=== PATIENT | male | born 1975 | race Caucasian/White ===

== ENCOUNTER 2020-05-06 10:20 | Outpatient (CLI) | payer BC ==
--- NOTE | 2020-05-06 11:17 | XRAY Report ---
PROCEDURE: Shoulder 2 View LT INDICATIONS: HEALTHCARE MAINTENANCE TECHNIQUE: 2 views of the shoulder were acquired. COMPARISON: None. FINDINGS: Bones: Mild osteophytic change of the acromioclavicular joint. Somewhat downsloping configuration of the acromion. Mild calcification at the insertion of the rotator cuff footplate. No fractures or dis locations. No suspicious bony lesions. Visualized ribs appear intact. Soft tissues: No suspicious soft tissue calcifications. IMPRESSION: Mild osteoarthritic changes of the acromioclavicular joint. Findings suspicious for calc ific tendinosis of the rotator cuff tendon. Mild downsloping of the acromion which may predispose to rotator cuff tear. MRI could be considered for further evaluation. Reviewed by: Nomi Roman MD on 05/06/2020 11:16 AM PDT Approved by: Nomi Roman MD on 05/06/2020 11:16 AM PDT Station ID: [id number]
== END 2020-05-06 10:21 | disposition home or self-care (01) ==
LOC: DI 10:20
PROVIDERS: ATTEND Family Medicine
DX: Z00.00 Encounter for general adult medical examination without abnormal findings (principal); M19.012 Primary osteoarthritis, left shoulder

== ENCOUNTER 2020-05-27 16:18 | Outpatient (CLI) | payer BC ==
--- NOTE | 2020-05-28 09:17 | MRI Report ---
PROCEDURE: Shoulder LT W/O INDICATIONS: LT SHOULDER PAIN TECHNIQUE: Noncontrast oblique coronal T2 fast spin echo with fat saturation, oblique sagittal T1 spin echo and T2 fast spin echo with fat saturation, axial T1 spin echo and T2 fast spin echo with fat saturation t hrough the shoulder. COMPARISON: Plain films of the left shoulder dated 05.06.20. FINDINGS: Image quality: Excellent. Rotator cuff: There is a high-grade articular surface tear of the mid supraspinatus tendon at the hum eral insertion site, measuring roughly 6 mm anteroposterior, demonstrating extension to the musculote ndinous junction. Low-grade partial-thickness and bursal surface tearing of the mid and posterior sup raspinatus tendon at the musculotendinous junction. Subscapularis, infraspinatus, and teres minor ten dons are intact. No rotator cuff atrophy. Bones and bursae: No bone marrow contusions or fractures. Moderate acromioclavicular joint degenerat ion. The acromion demonstrates conventional anatomy, without an os acromiale. Small amount of subacr omial/subdeltoid bursal fluid is present. Capsule and soft tissues: In the absence of intra-articular contrast, the labrum and glenohumeral li gaments appear intact. The long head of the biceps tendon demonstrates normal location and morpholog y. The rotator interval appears normal, without fibrosis. The coracohumeral ligament is normal in t hickness. IMPRESSION: 1. Partial thickness tears of the supraspinatus tendon as described above. 2. No full-thickness rotator cuff tear. 3. Acromial clavicular joint osteoarthritis. 4. Subacromial bursitis. Reviewed by: Mayda Valerio MD on 05/28/2020 9:16 AM PDT Approved by: Mayda Valerio MD on 05/28/2020 9:16 AM PDT Station ID: [id number]
== END 2020-05-27 16:19 | disposition home or self-care (01) ==
LOC: DI 16:18
PROVIDERS: ATTEND Family Medicine
DX: M75.102 Unspecified rotator cuff tear or rupture of left shoulder, not specified as traumatic (principal); M19.012 Primary osteoarthritis, left shoulder; M75.52 Bursitis of left shoulder

== ENCOUNTER 2021-06-21 13:28 | Outpatient (CLI) | payer BC | END 2021-06-21 13:29 | disposition home or self-care (01) | LOC: COV 13:28 | PROVIDERS: ATTEND Family Medicine | DX: U07.1 COVID-19 (principal) ==

== ENCOUNTER 2022-08-16 06:21 | Day surgery (SDC) | payer BC ==
[2022-08-16] MEDS ORDERED: LACTATED RINGERS 1,000 ML IV ONE ×2 (06:24→08:27)
--- NOTE | 2022-08-16 07:46 | ANESTHESIA ---
Pre-Anesthesia VS, & Labs - Diagnosis screening - Procedure colonoscopy Vital Signs: Temp Pulse Resp BP Pulse Ox O2 Flow Rate 36.0 C L 76 16 169/106 H 99 0 08/16/22 06:35 08/16/22 06:35 08/16/22 06:35 08/16/22 06:35 08/16/22 06:35 08/16/22 06:35 Height: 6 ft 1 in Weight (kg): 102 kg Body Mass Index: 29.6 BMI Classification: Overweight - NPO >8 hours Home Medications and Allergies Home Medications: Ambulatory Orders Atorvastatin Calcium 40 mg PO DAILY 08/16/22 Losartan Potassium [Cozaar] 100 mg PO DAILY 08/16/22 Atorvastatin Calcium 40 mg PO DAILY 08/16/22 Losartan Potassium [Cozaar] 100 mg PO DAILY 08/16/22 Allergies/Adverse Reactions: Allergies Allergy/AdvReac Type Severity Reaction Status Date / Time No Known Drug Allergies Allergy Verified 08/15/22 12:45 Anes History & Medical History - Anesthetic History Anesthesia Complications: reports: No previous complications Family history of Anesthesia Complications: Denies Family history of Malignant Hyperthermia: Denies - Medical History Cardiovascular: reports: Hypertension, High cholesterol Pulmonary: reports: None Gastrointestinal: reports: None Urinary: reports: None Musculoskeletal: reports: None Endocrine/Autoimmune: reports: None Skin: reports: None - Surgical History Orthopedic: reports: Arthroscopic surgery Exam General: Alert, Oriented x3, Cooperative Dental: WNL Mouth Openin Fingerbreadth Neck Mobility: Normal Mallampati classification: I Thyromental Distance: 4-6 cm Respiratory: Lungs clear Cardiovascular: Regular rate Plan Anesthesia Type: Total IV Consent for Procedure(s) Verified and Reviewed: Yes Code Status: Attempt Resuscitation ASA classification: 2-Mild systemic disease Is this case an emergency?: No
[2022-08-16] MEDS ORDERED: PROPOFOL 500 MG/50 ML 500 MG/50 ML VIAL ONE (07:53)
[2022-08-16] MEDS ORDERED: MIDAZOLAM 2 MG/2 ML VIAL ONE (07:53)
[2022-08-16 09:03] VITALS: BP 155/79
--- NOTE | 2022-08-16 13:02 | ANESTHESIA POST OP EVALUATION ---
Anesthesia Post Eval - Post Anesthesia Eval Vitals: Last Vital Signs Temp 36.4 C L 08/16/22 08:50 Pulse 61 08/16/22 08:50 Resp 16 08/16/22 08:50 BP 155/79 H 08/16/22 08:50 Pulse Ox 98 08/16/22 08:50 O2 Flow Rate 0 08/16/22 06:35 CV Function Including HR & BP: Stable Pain Control: Satisfactory Nausea & Vomiting: Negative Mental Status: Baseline Respiratory Status: Airway Patent Hydration Status: Satisfactory Anesthesia Complications: None
== END 2022-08-16 06:22 | disposition home or self-care (01) ==
LOC: SDS 06:21
PROVIDERS: ATTEND Surgery
PROC: 0DBP8ZX Excision of Rectum, Via Natural or Artificial Opening Endoscopic, Diagnostic (ICD-10-PCS; principal; 2022-08-16 07:30)
DX: Z12.11 Encounter for screening for malignant neoplasm of colon (principal); D12.8 Benign neoplasm of rectum; K64.8 Other hemorrhoids; I10 Essential (primary) hypertension; F17.290 Nicotine dependence, other tobacco product, uncomplicated
CPT/HCPCS: 45380; J7120

== ENCOUNTER 2022-09-24 09:10 | Emergency (ER) | payer BC ==
[2022-09-24 09:23] VITALS: BP 163/99
--- NOTE | 2022-09-24 09:28 | ED Physician Documentation ---
PD HPI LOWER EXT INJURY - Stated complaint Stated Complaint: LT FT/ANKLE INJ - Chief complaint Chief Complaint: Trauma Ext - History obtained from History obtained from: Patient - Additional information Additional information: 8 days ago he was hiking and twisted his ankle. He really did not hurt much at the time but about 4 days later developed more severe ankle pain mostly along the lateral ankle and less so to the medial ankle and somewhat in the lateral foot and calcaneus as well. Review of Systems Constitutional: reports: Reviewed and negative PD PAST MEDICAL HISTORY - Past Medical History Cardiovascular: Hypertension, High cholesterol Respiratory: None Endocrine/Autoimmune: None GI: None : None HEENT: None Psych: None Musculoskeletal: None Derm: None - Past Surgical History Ortho: Arthroscopic surgery - Present Medications Home Medications: Ambulatory Orders Medication Instructions Recorded Confirmed Atorvastatin Calcium 40 mg PO DAILY 08/16/22 08/16/22 Losartan Potassium [Cozaar] 100 mg PO DAILY 08/16/22 08/16/22 Ibuprofen [Motrin] 800 mg PO Q8H PRN #30 tablet 09/24/22 - Allergies Allergies/Adverse Reactions: Allergies Allergy/AdvReac Type Severity Reaction Status Date / Time No Known Drug Allergies Allergy Verified 09/24/22 09:23 PD ED PE NORMAL - Vitals Vital signs reviewed: Yes - General General: Alert and oriented X 3, No acute distress - Neck Neck: Supple, no meningeal sign, No bony TTP - Extremities Extremities: Other (Tender over the ATFL of the left foot. There is no bony tenderness of either malleolus or proximal fibula. No swelling or warmth or redness. Left foot mildly tender over the fifth metatarsal. No distal foot tenderness.) - Neuro Neuro: Alert and oriented X 3, Normal speech Results - Vitals Vitals: Vital Signs - 24 hr 09/24/22 09:21 Temperature 36.4 C L Heart Rate 67 Respiratory 12 Rate Blood Pressure 163/99 H O2 Saturation 100 Oxygen O2 Source Room air - Rads (name of study) Three-view x-ray of the right foot and ankle are unremarkable except heel spur and old medial fracture fragment Radiology: Final report received, EMP read indepedently PD Medical Decision Making - ED course ED course: 47-year-old gentleman with an ankle sprain. Albeit atypical because pain got worse 4 days after the incident. X-rays done with chronic findings only. Given a boot for comfort and discussed need for follow-up. Departure - Departure Disposition: 01 Home, Self Care Clinical Impression: Left ankle sprain Qualifiers: Encounter type: initial encounter Involved ligament of ankle: anterior talofibular ligament Qualified Code(s): S93.492A - Sprain of other ligament of left ankle, initial encounter Condition: Good Record reviewed to determine appropriate education?: Yes Instructions: ED Sprain Ankle W X Ray Prescriptions: Ibuprofen [Motrin] 800 mg PO Q8H PRN #30 tablet PRN Reason: PAIN &/OR FEVER Comments: As discussed, x-rays today are normal with respect to acute trauma. You do have an old chip fracture of the medial malleolus, but we can tell that this is not recent. Also a heel spur. Anti-inflammatories will be helpful and you can wear the boot when you are up and around, no need to wear it in the shower or in bed at [facility]. If you are not improved in a week, follow-up with your primary care physician for recheck. Discharge Date/Time: 09/24/22 10:13
--- NOTE | 2022-09-24 09:52 | XRAY Report ---
PROCEDURE: Ankle 3 View LT INDICATIONS: ankle/foot inj TECHNIQUE: 3 views of the ankle were acquired. COMPARISON: Correlation is made of examining foot plain films FINDINGS: Bones: No acute appearing fractures or dislocations. Remote fracture fragments can be seen distal to the medial malleolus. Ankle mortise is normally aligned. No suspicious bony lesions. The talar dom e demonstrates an unremarkable appearance. Incidental note is made of an enthesophyte at the Achil les insertion. Soft tissues: No tibiotalar joint effusion. Achilles tendon appears normal. IMPRESSION: No acute abnormality is seen by plain film. Reviewed by: Rajan Olmedo MD on 09/24/2022 8:51 AM [facility] Approved by: Rajan Olmedo MD on 09/24/2022 8:51 AM [facility] Station ID: [id number]
--- NOTE | 2022-09-24 09:53 | XRAY Report ---
PROCEDURE: Foot 3 View LT INDICATIONS: ANKLE FOOT INJ TECHNIQUE: 3 views of the foot were acquired. COMPARISON: Correlation is made with the accompanying ankle plain films. FINDINGS: Bones: No fractures or dislocations. No suspicious bony lesions. Incidental note is made of an en thesophyte at the Achilles insertion. Soft tissues: No tibiotalar joint effusion. Achilles tendon appears normal. IMPRESSION: No significant plain film abnormality is seen. Reviewed by: Rajan Olmedo MD on 09/24/2022 8:52 AM [facility] Approved by: Rajan Olmedo MD on 09/24/2022 8:52 AM [facility] Station ID: [id number]
== END 2022-09-24 10:13 | disposition home or self-care (01) ==
LOC: ED 09:10
DX: S93.492A Sprain of other ligament of left ankle, initial encounter (principal); X50.1XXA Overexertion from prolonged static or awkward postures, initial encounter; Y93.01 Activity, walking, marching and hiking; I10 Essential (primary) hypertension
CPT/HCPCS: 99283